=== PATIENT | male | born 1995 | race Caucasian/White ===

== ENCOUNTER 2017-05-19 18:11 | Emergency (ER) | payer MEDICAID ==
[~2017-05-19] VITALS: Ht 177.8 cm; Wt 65.8 kg
[2017-05-19 19:00] VITALS: BP 124/86
== END 2017-05-19 22:59 | disposition home or self-care (01) ==
LOC: ER 18:11
DX: S60.562A Insect bite (nonvenomous) of left hand, initial encounter (principal); L02.414 Cutaneous abscess of left upper limb; W57.XXXA Bitten or stung by nonvenomous insect and other nonvenomous arthropods, initial encounter; Y93.89 Activity, other specified; Y92.89 Other specified places as the place of occurrence of the external cause; Y99.8 Other external cause status

== ENCOUNTER 2021-01-11 10:25 | Emergency (ER) | payer MEDICAID ==
[~2021-01-11] VITALS: Ht 175.3 cm; Wt 63.5 kg
[2021-01-11 10:35] VITALS: BP 128/84
[2021-01-11] MEDS ORDERED: KETOROLAC TROMETH 60MG/2ML VIAL IM ONE (12:30)
== END 2021-01-11 12:32 | disposition home or self-care (01) ==
LOC: ER 10:25
DX: S86.912A Strain of unspecified muscle(s) and tendon(s) at lower leg level, left leg, initial encounter (principal); F12.10 Cannabis abuse, uncomplicated; X58.XXXA Exposure to other specified factors, initial encounter; Y93.89 Activity, other specified; Y92.89 Other specified places as the place of occurrence of the external cause; Y99.8 Other external cause status
CPT/HCPCS: 93971